=== PATIENT | male | born 1980 | race African-American/Black ===

== ENCOUNTER 2022-01-20 12:36 | Emergency (ER) | payer BC ==
[~2022-01-20] VITALS: Ht 170.2 cm; Wt 87.0 kg
[2022-01-20] MEDS ORDERED: IBUPROFEN 400MG TABLET PO ONE (13:30)
[2022-01-20 13:36] VITALS: BP 159/100
[2022-01-20] MEDS ORDERED: IBUP-2028 MT (16:25)
== END 2022-01-20 16:41 | disposition home or self-care (01) ==
LOC: ER 12:36
DX: U07.1 COVID-19 (principal)
CPT/HCPCS: 87426; 99283; C9803